=== PATIENT | male | born 1985 | race Caucasian/White ===

== ENCOUNTER 2017-01-27 11:32 | Emergency (ER) | payer MEDICARE, OTHER ==
[~2017-01-27] VITALS: Ht 180.3 cm; Wt 79.4 kg
--- NOTE | 2017-01-27 13:15 | RAD ---
CT head without IV contrast Indication: Laceration to the back of the head status post fall Technique: CT head without IV contrast Comparison: None Findings: Craniotomy changes noted in the calvarium. Large low attenuating area within the inferior left temporal lobe likely encephalomalacia. No acute intracranial bleed. The ventricles and basilar cisterns are within normal limits. Small subgaleal hematoma with scalp laceration is seen within posterior superior aspect of the head (series 2 image 25). Orbits are within normal limits. No calvarial fractures. The paranasal sinuses and mastoid air cells are clear. Impression: 1. No acute intracranial bleed. 2. Large area of low attenuation within inferior left temporal lobe likely represents encephalomalacia. Correlate with surgical history. 3. Small subgaleal hematoma and scalp laceration overlying the posterior superior head. PQRS Compliance Statement: One or more of the following individualized dose reduction techniques were utilized for this examination: 1. Automated exposure control 2. Adjustment of the mA and/or kV according to patient size 3. Use of iterative reconstruction technique
--- NOTE | 2017-01-27 13:53 | PHYS DOC ---
Past Medical History Past Medical History: Seizure Past Surgical History: Other Additional Past Surgical Histo: brain Alcohol Use: None Drug Use: None Adult General Chief Complaint Chief Complaint: MECHANICAL FALL HPI HPI Patient is a 31 year old [f__sex] who presents with [] Review of Systems Review of Systems Constitutional: Denies fever or chills [] Eyes: Denies change in visual acuity, redness, or eye pain [] HENT: Denies nasal congestion or sore throat [] Respiratory: Denies cough or shortness of breath [] Cardiovascular: No additional information not addressed in HPI [] GI: Denies abdominal pain, nausea, vomiting, bloody stools or diarrhea [] : Denies dysuria or hematuria [] Musculoskeletal: Denies back pain or joint pain [] Integument: Denies rash or skin lesions [] Neurologic: Denies headache, focal weakness or sensory changes [] Endocrine: Denies polyuria or polydipsia [] Allergies Allergies Allergies Coded Allergies Type Severity Reaction Last Updated Verified No Known Drug Allergies 03/23/15 No Physical Exam Physical Exam Constitutional: Well developed, well nourished, no acute distress, non-toxic appearance. [] HENT: Normocephalic, atraumatic, bilateral external ears normal, oropharynx moist, no oral exudates, nose normal. [] Eyes: PERRLA, EOMI, conjunctiva normal, no discharge. [] Neck: Normal range of motion, no tenderness, supple, no stridor. [] Cardiovascular:Heart rate regular rhythm, no murmur [] Lungs & Thorax: Bilateral breath sounds clear to auscultation [] Abdomen: Bowel sounds normal, soft, no tenderness, no masses, no pulsatile masses. [] Skin: Warm, dry, no erythema, no rash. [] Back: No tenderness, no CVA tenderness. [] Extremities: No tenderness, no cyanosis, no clubbing, ROM intact, no edema. [] Neurologic: Alert and oriented X 3, normal motor function, normal sensory function, no focal deficits noted. [] Psychologic: Affect normal, judgement normal, mood normal. [] Current Patient Data Vital Signs Vital Signs Date Time Temp Pulse Resp B/P (MAP) Pulse Ox O2 Delivery O2 Flow Rate FiO2 01/27/17 11:35 98.7 78 20 131/76 (94) 98 Room Air 98.7 EKG EKG [] Radiology/Procedures Radiology/Procedures [] Course & Med Decision Making Course & Med Decision Making Pertinent Labs and Imaging studies reviewed. (See chart for details) [] Dragon Disclaimer Dragon Disclaimer This electronic medical record was generated, in whole or in part, using a voice recognition dictation system. Departure Departure Impression: Primary Impression: Closed head injury Additional Impressions: Occipital scalp laceration Scalp hematoma Disposition: HOME, SELF-CARE Referrals: JEAN WHITE MD (PCP) Patient Instructions: Head Injury, Adult Additional Instructions: You've suffered a minor head injury today. Your CAT scan was unremarkable with no fracture or evidence of acute brain injury. Her laceration has been repaired with wound adhesive. Follow-up with your doctor in 2 days for a wound check and return for signs of infection. He did have a hematoma on her scalp. This is soft tissue swelling with bleeding under the skin. Apply an ice pack today as needed and take ibuprofen and Tylenol as needed for discomfort. Problem Qualifiers ELENI WEINSTEIN MD Jan 27, 2017 13:53
[2017-01-27 13:58] VITALS: BP 130/87
== END 2017-01-27 13:58 | disposition home or self-care (01) ==
LOC: ER 11:32
DX: S01.01XA Laceration without foreign body of scalp, initial encounter (principal); X58.XXXA Exposure to other specified factors, initial encounter; Y93.89 Activity, other specified; Y99.8 Other external cause status; Y92.89 Other specified places as the place of occurrence of the external cause
CPT/HCPCS: 70450; 99284-25

== ENCOUNTER 2017-02-15 01:15 | Emergency (ER) | payer MEDICARE, OTHER ==
[~2017-02-15] VITALS: Ht 180.3 cm; Wt 98.0 kg
--- NOTE | 2017-02-15 01:19 | PHYS DOC ---
Past Medical History Past Medical History: Seizure Past Surgical History: Other Additional Past Surgical Histo: brain Alcohol Use: None Drug Use: None Adult General Chief Complaint Chief Complaint: ABDOMINAL PAIN HPI HPI Patient is a 31 year old male who presents with abdominal pain with diarrhea. He states started Thursday was having nausea and he is had about 3-4 loose nonbloody bowel movements daily. He states he's having constant abdominal pain is throbbing in nature and its around his umbilicus area. He states nothing makes it better or worse. He did take some Aleve today prior to coming to the emergency department. He denies any fevers or chills. He denies any recent travel. He does state he eats 3-4 pounds of cheese every day. He also drinks soda pop. Review of Systems Review of Systems Constitutional: Denies fever or chills [] Eyes: Denies change in visual acuity, redness, or eye pain [] HENT: Denies nasal congestion or sore throat [] Respiratory: Denies cough or shortness of breath [] Cardiovascular: No additional information not addressed in HPI [] GI: Denies abdominal pain, nausea, vomiting, bloody stools or diarrhea [] : Denies dysuria or hematuria [] Musculoskeletal: Denies back pain or joint pain [] Integument: Denies rash or skin lesions [] Neurologic: Denies headache, focal weakness or sensory changes [] Endocrine: Denies polyuria or polydipsia [] Current Medications Current Medications Current Medications Medications (Trade) Dose Ordered Sig/Elmer Start Time Stop Time Status Last Admin Dose Admin Info (Do NOT chart on this entry -- for MONITORING) 1 each PRN DAILY PRN 02/15/17 03:00 02/17/17 02:59 Iohexol (Omnipaque 300 Mg/ml) 75 ml 1X ONCE 02/15/17 03:00 02/15/17 03:01 DC 02/15/17 03:28 75 ML Morphine Sulfate 2 mg PRN Q15MIN PRN 02/15/17 01:45 02/16/17 01:44 02/15/17 03:39 2 MG Ondansetron HCl (Zofran) 4 mg 1X ONCE 02/15/17 01:45 02/15/17 02:12 DC 02/15/17 02:09 4 MG Sodium Chloride 1,000 ml @ 1,000 mls/hr Q1H 02/15/17 01:44 02/15/17 02:43 DC 02/15/17 02:09 1,000 MLS/HR Allergies Allergies Allergies Coded Allergies Type Severity Reaction Last Updated Verified No Known Drug Allergies 03/23/15 No Physical Exam Physical Exam Constitutional: Well developed, well nourished, no acute distress, non-toxic appearance. [] HENT: Normocephalic, atraumatic, bilateral external ears normal, oropharynx moist, no oral exudates, nose normal. [] Eyes: PERRLA, EOMI, conjunctiva normal, no discharge. [] Neck: Normal range of motion, no tenderness, supple, no stridor. [] Cardiovascular:Heart rate regular rhythm, no murmur [] Lungs & Thorax: Bilateral breath sounds clear to auscultation [] Abdomen/genital's: Bowel sounds hypoactive, soft, mildly tender to palpation around the umbilicus, no rebound or guarding, no masses, no pulsatile masses. Testicles nontender bilaterally, no masses appreciated Skin: Warm, dry, no erythema, no rash. [] Back: No tenderness, no CVA tenderness. [] Extremities: No tenderness, no cyanosis, no clubbing, ROM intact, no edema. [] Neurologic: Alert and oriented X 3, normal motor function, normal sensory function, no focal deficits noted. [] Psychologic: Affect normal, judgement normal, mood normal. [] Current Patient Data Vital Signs Vital Signs Date Time Temp Pulse Resp B/P (MAP) Pulse Ox O2 Delivery O2 Flow Rate FiO2 02/15/17 01:39 98.3 84 16 118/68 (85) 99 Room Air 98.3 Lab Values Laboratory Tests Test 02/15/17 01:35 02/15/17 02:05 White Blood Count 7.7 x10^3/uL (4.0-11.0) Red Blood Count 4.77 x10^6/uL (4.30-5.70) Hemoglobin 14.1 g/dL (13.0-17.5) Hematocrit 41.0 % (39.0-53.0) Mean Corpuscular Volume 86 fL (79-100) Mean Corpuscular Hemoglobin 30 pg (25-35) Mean Corpuscular Hemoglobin Concent 34 g/dL (31-37) Red Cell Distribution Width 15.0 % (11.5-14.5) H Platelet Count 182 x10^3/uL (140-400) Neutrophils (%) (Auto) 52 % (31-73) Lymphocytes (%) (Auto) 37 % (24-48) Monocytes (%) (Auto) 9 % (0-9) Eosinophils (%) (Auto) 3 % (0-3) Basophils (%) (Auto) 0 % (0-3) Neutrophils # (Auto) 4.0 x10^3uL (1.8-7.7) Lymphocytes # (Auto) 2.9 x10^3/uL (1.0-4.8) Monocytes # (Auto) 0.7 x10^3/uL (0.0-1.1) Eosinophils # (Auto) 0.2 x10^3/uL (0.0-0.7) Basophils # (Auto) 0.0 x10^3/uL (0.0-0.2) Sodium Level 139 mmol/L (136-145) Potassium Level 3.8 mmol/L (3.5-5.1) Chloride Level 101 mmol/L (98-107) Carbon Dioxide Level 31 mmol/L (21-32) Anion Gap 7 (6-14) Blood Urea Nitrogen 20 mg/dL (8-26) Creatinine 0.7 mg/dL (0.7-1.3) Estimated GFR (Cockcroft-Gault) 131.5 Glucose Level 116 mg/dL (70-99) H Calcium Level 9.3 mg/dL (8.5-10.1) Total Bilirubin 0.2 mg/dL (0.2-1.0) Direct Bilirubin < 0.1 mg/dL (0.0-0.2) Aspartate Amino Transferase (AST) 17 U/L (15-37) Alanine Aminotransferase (ALT) 22 U/L (16-63) Alkaline Phosphatase 94 U/L (46-116) Total Protein 7.5 g/dL (6.4-8.2) Albumin 3.6 g/dL (3.4-5.0) Lipase 322 U/L (73-393) Urine Collection Type Unknown Urine Color Yellow Urine Clarity Cloudy Urine pH 6.5 Urine Specific Callahan 1.020 Urine Protein Negative mg/dL (NEG-TRACE) Urine Glucose (UA) Negative mg/dL (NEG) Urine Ketones (Stick) Negative mg/dL (NEG) Urine Blood Negative (NEG) Urine Nitrite Negative (NEG) Urine Bilirubin Negative (NEG) Urine Urobilinogen Dipstick 0.2 mg/dL (0.2 mg/dL) Urine Leukocyte Esterase Negative (NEG) Urine RBC 0 /HPF (0-2) Urine WBC 0 /HPF (0-4) Urine Squamous Epithelial Cells Few /LPF Urine Bacteria 0 /HPF (0-FEW) Urine Hyaline Casts Few /HPF Urine Mucus Slight /LPF Laboratory Tests 02/15/17 01:35 Laboratory Tests 02/15/17 01:35 EKG EKG [] Radiology/Procedures Radiology/Procedures [facility] [address] [place] [address] IMAGING REPORT Signed PATIENT: MARISOL LANGE ACCOUNT: [id number] : 1985 LOCATION: ER AGE: 31 SEX: M EXAM STATUS: REG ER ORD. PHYSICIAN: RAZIA FULLER MD REASON: pain PROCEDURE: CT ABD PELV W/ IV CONTRST ONLY INDICATION: abd pain; Omni 300, 75ml COMPARISON: None. TECHNIQUE: Axial CT images were obtained through the abdomen and pelvis with intravenous contrast. One or more of the following individualized dose reduction techniques were utilized for this examination: 1. Automated exposure control; 2. Adjustment of the mA and/or kV according to patient size; 3. Use of iterative reconstruction technique. FINDINGS: Chest Base: Partially imaged without gross abnormality. Vessels: No abdominal aortic aneurysm. Liver/Biliary: No intrahepatic biliary duct dilation. Pancreas: No peripancreatic edema. Spleen: Normal. Kidneys/Adrenal: 13 mm low-attenuation lesion right kidney. There is some high density within the renal pelvis which could be from excreted contrast. This could obscure small stones. No hydronephrosis. Bladder: No definite adjacent inflammation. GI: No free air. No bowel dilation to suggest obstruction. The suspected appendix does not appear grossly inflamed. Mild prominence of the wall of the stomach at antrum. IMPRESSION: 1. No evidence of bowel obstruction or hydronephrosis. 2. Low-attenuation lesion within the right kidney which is indeterminate on this exam. Could be from causes such as a cyst with debris but a solid more worrisome component is not excluded on this exam. Nonemergent ultrasound may be helpful to further evaluate. 3. Prominence of the wall of the antrum of the stomach. This could be secondary to a region of contraction but if there is pain in the region an area of real wall thickening from causes such as gastritis or ulcer are within the differential. Neoplastic causes would be rare in a patient of this age. Electronically signed by: Barry Brar MD (02/15/2017 4:03 AM) [facility] DICTATED and SIGNED BY: BARRY BRAR MD DATE: 02/15/17 0355 CC: RAZIA FULLER MD; JEAN WHITE MD ~ Impressions: Abdominal pain Possible Renal cyst Course & Med Decision Making Course & Med Decision Making Pertinent Labs and Imaging studies reviewed. (See chart for details) Labs, vitals, CT scan non-concerning for acute process. I believe he has an acute process going on at this time. He is not tender in his epigastric area. We will discharge him home and he can use lactobacillus, Pepcid AC and better eating habits and specifically avoiding pop and milk products including cheese. He is agreeable plan is to follow-up with Dr. White regarding his abnormal CT scan. Return precautions given. Dragon Disclaimer Dragon Disclaimer This electronic medical record was generated, in whole or in part, using a voice recognition dictation system. Departure Departure Impression: Primary Impression: Abdominal pain Disposition: 01 HOME, SELF-CARE Condition: STABLE Referrals: JEAN WHITE MD (PCP) Patient Instructions: Abdominal Migraine Additional Instructions: The CAT scan of your abdomen pelvis didn't show any acute process. It does show a possible cyst and we are kidneys any need to have a repeat CAT scan in the near future. Please follow-up with her primary care physician to have this arranged. You should eat healthier and stopped eating as much cheese and popped. You can start taking Pepcid AC he can purchase [id number]. Please follow instructions the bottle. Return ER if you have worsening pain, uncontrolled nausea vomiting, or notice any blood in your stools. Problem Qualifiers Primary Impression: Abdominal pain Abdominal location: periumbilical Qualified Codes: R10.33 - Periumbilical pain RAZIA FULLER MD Feb 15, 2017 01:19
[2017-02-15] MEDS ORDERED: IV NORMAL SALINE 1000ML BAG 1,000 ML IV SCH (01:44)
[2017-02-15] MEDS ORDERED: ONDANSETRON PF 4 MG/2 ML VIAL. IV ONE (01:45)
[2017-02-15 02:08] LABS: BASO % 0 % (0-3); EOS % 3 % (0-3); HEMOGLOBIN 14.1 g/dL (13.0-17.5); LYMPH # 2.9 x10^3/uL (1.0-4.8); LYMPH % 37 % (24-48); MEAN CORPUSCULAR HEMOGLOBIN 30 pg (25-35); MEAN CORPUSCULAR HGB CONC 34 g/dL (31-37); MEAN CORPUSCULAR VOLUME 86 fL (79-100); MONO % 9 % (0-9); NEUT % 52 % (31-73); PLATELET COUNT 182 x10^3/uL (140-400); RED BLOOD COUNT 4.77 x10^6/uL (4.30-5.70); WHITE BLOOD COUNT 7.7 x10^3/uL (4.0-11.0)
[2017-02-15] MEDS: MORPHINE SULFATE 2 MG/ML DISP.SYRIN. IV/SQ PRN ×2 (02:09→03:39)
[2017-02-15 02:18] LABS: BILIRUBIN,URINE NEGATIVE (NEG); GLUCOSE,URINE NEGATIVE (NEG); NITRITE,URINE NEGATIVE (NEG); PH,URINE 6.5; PROTEIN,URINE NEGATIVE (NEG-TRACE); UROBILINOGEN,URINE 0.2 mg/dL (0.2 mg/dL)
[2017-02-15 02:44] LABS: ANION GAP 7 (6-14); BLOOD UREA NITROGEN 20 mg/dL (8-26); CALCIUM 9.3 mg/dL (8.5-10.1); CARBON DIOXIDE 31 mmol/L (21-32); CHLORIDE 101 mmol/L (98-107); CREATININE 0.7 mg/dL (0.7-1.3); GFR 131.5; GLUCOSE 116 mg/dL (70-99); POTASSIUM 3.8 mmol/L (3.5-5.1); SODIUM 139 mmol/L (136-145)
[2017-02-15 02:50] LABS: ALBUMIN 3.6 g/dL (3.4-5.0); ALK PHOS 94 U/L (46-116); ALT (SGPT) 22 U/L (16-63); AST (SGOT) 17 U/L (15-37); DIRECT BILIRUBIN < 0.1 mg/dL (0.0-0.2); TOTAL BILIRUBIN 0.2 mg/dL (0.2-1.0); TOTAL PROTEIN 7.5 g/dL (6.4-8.2)
[2017-02-15 02:52] LABS: BACTERIA,URINE 0 /HPF (0-FEW); RBC,URINE 0 /HPF (0-2); SQUAMOUS EPITHELIAL CELL,UR FEW /LPF; WBC,URINE 0 /HPF (0-4)
[2017-02-15] MEDS ORDERED: CONTRAST GIVEN MC PRN (03:00)
[2017-02-15] MEDS ORDERED: IOHEXOL 300 MG/ML 75 ML VIAL IV ONE (03:00)
--- NOTE | 2017-02-15 04:07 | RAD ---
INDICATION: abd pain; Omni 300, 75ml COMPARISON: None. TECHNIQUE: Axial CT images were obtained through the abdomen and pelvis with intravenous contrast. One or more of the following individualized dose reduction techniques were utilized for this examination: 1. Automated exposure control; 2. Adjustment of the mA and/or kV according to patient size; 3. Use of iterative reconstruction technique. FINDINGS: Chest Base: Partially imaged without gross abnormality. Vessels: No abdominal aortic aneurysm. Liver/Biliary: No intrahepatic biliary duct dilation. Pancreas: No peripancreatic edema. Spleen: Normal. Kidneys/Adrenal: 13 mm low-attenuation lesion right kidney. There is some high density within the renal pelvis which could be from excreted contrast. This could obscure small stones. No hydronephrosis. Bladder: No definite adjacent inflammation. GI: No free air. No bowel dilation to suggest obstruction. The suspected appendix does not appear grossly inflamed. Mild prominence of the wall of the stomach at antrum. IMPRESSION: 1. No evidence of bowel obstruction or hydronephrosis. 2. Low-attenuation lesion within the right kidney which is indeterminate on this exam. Could be from causes such as a cyst with debris but a solid more worrisome component is not excluded on this exam. Nonemergent ultrasound may be helpful to further evaluate. 3. Prominence of the wall of the antrum of the stomach. This could be secondary to a region of contraction but if there is pain in the region an area of real wall thickening from causes such as gastritis or ulcer are within the differential. Neoplastic causes would be rare in a patient of this age. Electronically signed by: Miles Garibay MD (02/15/2017 4:03 AM) [facility]
[2017-02-15 05:02] VITALS: BP 133/69
== END 2017-02-15 05:45 | disposition home or self-care (01) ==
LOC: ER 01:15
DX: R10.33 Periumbilical pain (principal); R19.7 Diarrhea, unspecified; R11.0 Nausea
CPT/HCPCS: 36415; 74177; 80048; 80076; 81001; 83690; 85025; 96361; 96374; 96375; 96376; 99285; J2270; J2405; J7030; Q9967

== ENCOUNTER → 2017-03-11 | Outpatient (CLI) | payer MEDICARE, OTHER ==
[2017-02-15 05:02] VITALS: BP 133/69
[~2017-03-11] MED LIST: CYCL10TA2 PO; NAPR500T PO
--- NOTE | 2017-03-11 09:35 | RAD ---
Renal ultrasound, 03/11/2017: History: Renal mass on CT scan The right kidney measures 12.4 cm in length while the left kidney measures 12.0 cm. There is a 1.9 cm cyst in the anterolateral aspect of the right kidney. No other renal mass is seen. There is no evidence of hydronephrosis. No abnormal perinephric process is evident. The urinary bladder is poorly delineated due to the lack of bladder distention. IMPRESSION: 1. Small right renal cyst. 2. The kidneys are otherwise unremarkable.
== END | disposition home or self-care (01) ==
LOC: US 08:59
PROVIDERS: ATTEND Family Medicine
DX: N28.1 Cyst of kidney, acquired (principal); N28.89 Other specified disorders of kidney and ureter
CPT/HCPCS: 76770

== ENCOUNTER 2017-03-14 18:41 | Emergency (ER) | payer MEDICARE, OTHER ==
[~2017-03-14] VITALS: Ht 180.3 cm; Wt 98.0 kg
[2017-03-14 19:15] VITALS: BP 127/81
[2017-03-14] MEDS ORDERED: CYCL10TA2 PO (19:28)
[2017-03-14] MEDS ORDERED: NAPR500T PO (19:28)
--- NOTE | 2017-03-14 19:29 | PHYS DOC ---
Past Medical History Past Medical History: Seizure Past Surgical History: Other Additional Past Surgical Histo: brain, LEFT TEMPERAL LOBECTOMY, RIGHT KNEE Alcohol Use: None Drug Use: None Adult General Chief Complaint Chief Complaint: BACK PAIN OR INJURY HPI HPI Patient is a 31 year old male presents to the emergency department with complaints of chronic back discomfort. He states he's had back discomfort for many many years. He feels it is related to his job. 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 He has no loss of function lower extremities, loss of bowel or bladder control. No abdominal pain. Review of Systems Review of Systems Constitutional: Denies fever or chills [] Eyes: Denies change in visual acuity, redness, or eye pain [] HENT: Denies nasal congestion or sore throat [] Respiratory: Denies cough or shortness of breath [] Cardiovascular: No additional information not addressed in HPI [] GI: Denies abdominal pain, nausea, vomiting, bloody stools or diarrhea [] : Denies dysuria or hematuria [] Musculoskeletal: Back pain Integument: Denies rash or skin lesions [] Neurologic: Denies headache, focal weakness or sensory changes [] Endocrine: Denies polyuria or polydipsia [] Allergies Allergies Allergies Coded Allergies Type Severity Reaction Last Updated Verified No Known Drug Allergies 03/23/15 No Physical Exam Physical Exam Constitutional: Well developed, well nourished, no acute distress, non-toxic appearance. [] HENT: Normocephalic, atraumatic, bilateral external ears normal, oropharynx moist, no oral exudates, nose normal. [] Eyes: PERRLA, EOMI, conjunctiva normal, no discharge. [] Neck: Normal range of motion, no tenderness, supple, no stridor. [] Cardiovascular:Heart rate regular rhythm, no murmur [] Lungs & Thorax: Bilateral breath sounds clear to auscultation [] Abdomen: Bowel sounds normal, soft, no tenderness, no masses, no pulsatile masses. [] Skin: Warm, dry, no erythema, no rash. [] Back: Diffuse muscular tenderness without midline tenderness, no paraspinous tenderness. No CVA tenderness. Extremities: No tenderness, no cyanosis, no clubbing, ROM intact, no edema muscle strength is 5 over 5, DTRs 2 over 4, no saddle anesthesia.. [] Neurologic: Alert and oriented X 3, normal motor function, normal sensory function, no focal deficits noted. [] Psychologic: Affect normal, judgement normal, mood normal. [] EKG EKG [] Radiology/Procedures Radiology/Procedures [] Course & Med Decision Making Course & Med Decision Making Pertinent Labs and Imaging studies reviewed. (See chart for details) [] Dragon Disclaimer Dragon Disclaimer This electronic medical record was generated, in whole or in part, using a voice recognition dictation system. Departure Departure Impression: Primary Impression: Chronic back pain Disposition: HOME, SELF-CARE Condition: STABLE Referrals: JEAN WHITE MD (PCP) Patient Instructions: Back Pain, Adult Scripts Naproxen (NAPROSYN) 500 Mg Tablet 500 MG PO BID, #20 TAB Prov: LUPIS MENDOZA APRN 03/14/17 Cyclobenzaprine Hcl (CYCLOBENZAPRINE HCL) 10 Mg Tablet 10 MG PO TID, #30 TAB Prov: LUPIS MENDOZA APRN 03/14/17 Problem Qualifiers Primary Impression: Chronic back pain Back pain location: low back pain Back pain laterality: bilateral Sciatica presence: without sciatica Qualified Codes: M54.5 - Low back pain; G89.29 - Other chronic pain LUPIS MENDOZA APRN Mar 14, 2017 19:29
== END 2017-03-14 19:57 | disposition home or self-care (01) ==
LOC: ER 18:41
DX: G89.29 Other chronic pain (principal); M54.5 Low back pain
CPT/HCPCS: 99283

== ENCOUNTER → 2017-05-08 | Day surgery (SDC) | payer MEDICARE, OTHER ==
[~2017-05-08] MED LIST changes: +DIVA500T2 PO; +HYDROmorphone 2 MG/ML VIAL IV PRN; +IV RINGERS,LACTATED 1000ML 1,000 ML IV SCH; +LAMO200T3 PO; +LEVE100020 PO; +LIDOCAINE 1% PF 2 ML VIAL. ID PRN; +LIDOCAINE 2% PF Vial for OR 5 ML VIAL. ONE; +LORA10TA3 PO; +MORPHINE SULFATE 2 MG/ML DISP.SYRIN. IV PRN; +NAPR-683 PO; -NAPR500T PO; +ONDANSETRON PF 4 MG/2 ML VIAL. IV PRN; +PROCHLORPERAZINE 10 MG/2 ML VIAL. IV PRN; +PROPOFOL 20 ML IV ONE; +ZOLP10TA4 PO; +fentaNYL PF VIAL 100 MCG/2 ML VIAL IV PRN
[2017-05-08 09:01] VITALS: BP 118/72
== END | disposition home or self-care (01) ==
LOC: ENDOS 07:16
PROVIDERS: ATTEND Internal Medicine Gastroenterology
DX: K29.50 Unspecified chronic gastritis without bleeding (principal); F41.9 Anxiety disorder, unspecified; F32.9 Major depressive disorder, single episode, unspecified; Z86.69 Personal history of other diseases of the nervous system and sense organs; Z87.39 Personal history of other diseases of the musculoskeletal system and connective tissue; Z87.442 Personal history of urinary calculi; Z88.8 Allergy status to other drugs, medicaments and biological substances
CPT/HCPCS: 43235; J2704; J2001

== ENCOUNTER → 2017-05-27 | Outpatient (CLI) | payer MEDICARE, OTHER ==
[2017-05-08 09:01] VITALS: BP 118/72
[~2017-05-27] VITALS: Ht 180.3 cm; Wt 106.6 kg
[~2017-05-27] MED LIST changes: -HYDROmorphone 2 MG/ML VIAL IV PRN; -IV RINGERS,LACTATED 1000ML 1,000 ML IV SCH; -LIDOCAINE 1% PF 2 ML VIAL. ID PRN; -LIDOCAINE 2% PF Vial for OR 5 ML VIAL. ONE; -MORPHINE SULFATE 2 MG/ML DISP.SYRIN. IV PRN; -ONDANSETRON PF 4 MG/2 ML VIAL. IV PRN; -PROCHLORPERAZINE 10 MG/2 ML VIAL. IV PRN; -PROPOFOL 20 ML IV ONE; +SINCALIDE 2.1 MCG in IV NORMAL SALINE 50ML 30 ML IV ONE; -fentaNYL PF VIAL 100 MCG/2 ML VIAL IV PRN
--- NOTE | 2017-05-27 08:31 | RAD ---
Right upper quadrant ultrasound 05/27/2017 Indication: Epigastric pain Comparison study: CT of the abdomen and pelvis February 15, 2017 Discussion: Ultrasound evaluation of the right upper quadrant was performed. Static images were submitted to PACS. Pancreas is somewhat poorly visualized. Visualized portions of the pancreatic head are grossly unremarkable. The liver is top normal in longitudinal diameter measuring 17.5 cm. The liver appears to be mildly diffusely hyperechoic suggesting some degree of hepatic steatosis. Portal venous flows in the normal direction. No focal hepatic lesions are identified. The gallbladder is normal in appearance without evidence of wall thickening, stones, or sludge. The common bile duct is normal in diameter at 4 mm. There is a 1.9 cm partially cystic cyst within the mid right kidney. The right kidney is otherwise normal appearance measuring 12.5 cm in length. Impression: 1. Hepatic steatosis 2. 1.9 cm right renal cyst, stable from prior exam.
--- NOTE | 2017-05-27 11:19 | RAD ---
Hepatobiliary scan with gallbladder ejection fraction calculation 09/25/2016 Clinical History: Abdominal pain for 2 months. Technique: After the intravenous administration of 5.5 mCi of Technetium 99m Choletec, imaging of the right upper quadrant of the abdomen was performed using the gamma camera for 60 minutes. 2.1 mcg of CCK was then infused intravenously over 30 minutes. Continued imaging of the right upper quadrant abdomen was performed. A gallbladder ejection fraction was calculated. Findings: Normal uptake and excretion of the radionuclide by the liver is seen. There is no evidence of cystic or common bile duct obstruction. The gallbladder is within normal limits in size and configuration. During the infusion CCK normal emptying of the gallbladder is seen. The gallbladder ejection fraction is 86.4 % which is within normal limits. Impression: Negative study.
== END | disposition home or self-care (01) ==
LOC: US 07:49
PROVIDERS: ATTEND Internal Medicine Gastroenterology
DX: R10.13 Epigastric pain (principal); K76.0 Fatty (change of) liver, not elsewhere classified; N28.1 Cyst of kidney, acquired
CPT/HCPCS: 76705; 78226; 96374; 96375; A9537; J2805

== ENCOUNTER 2017-06-05 06:27 | Emergency (ER) | payer MEDICARE, OTHER | END 2017-06-05 07:23 | disposition home or self-care (01) | LOC: ER 06:27 | DX: J02.9 Acute pharyngitis, unspecified (principal); Z88.8 Allergy status to other drugs, medicaments and biological substances | CPT/HCPCS: 99283 ==

== ENCOUNTER → 2017-06-10 | Outpatient (CLI) | payer MEDICARE, OTHER | END | disposition home or self-care (01) | LOC: NM 06:46 | DX: R10.13 Epigastric pain (principal) | CPT/HCPCS: 78264; A9541 ==

== ENCOUNTER 2017-10-25 15:36 | Emergency (ER) | payer SELFPAY, OTHER, MEDICARE ==
[2017-10-26 10:21] LABS: NEGATIVE OBC STREP NEG; POSITIVE OBC STREP POS
== END 2017-10-25 17:38 | disposition home or self-care (01) ==
LOC: ER 17:38
DX: J40 Bronchitis, not specified as acute or chronic (principal); Z88.8 Allergy status to other drugs, medicaments and biological substances
CPT/HCPCS: 87070; 87880; 99283

== ENCOUNTER 2018-01-01 07:32 | Emergency (ER) | payer OTHER | END 2018-01-01 08:33 | disposition home or self-care (01) | LOC: ER 07:32 | DX: S93.402A Sprain of unspecified ligament of left ankle, initial encounter (principal); F31.9 Bipolar disorder, unspecified; Z88.8 Allergy status to other drugs, medicaments and biological substances; W01.0XXA Fall on same level from slipping, tripping and stumbling without subsequent striking against object, initial encounter; Y93.89 Activity, other specified; Y99.8 Other external cause status; Y92.89 Other specified places as the place of occurrence of the external cause | CPT/HCPCS: 73610; 99284; L4350 ==

== ENCOUNTER → 2018-04-06 | Outpatient (CLI) | payer MEDICARE, OTHER ==
[2018-01-01 07:44] VITALS: BP 129/59
[~2018-04-06] MED LIST changes: +AMOX875T PO; +AZIT250T PO; -SINCALIDE 2.1 MCG in IV NORMAL SALINE 50ML 30 ML IV ONE
[2018-04-06 11:40] LABS: BASO # 0.1 x10^3/uL (0.0-0.2); BASO % 1 % (0-3); EOS # 0.1 x10^3/uL (0.0-0.7); EOS % 1 % (0-3); HEMOGLOBIN 14.5 g/dL (13.0-17.5); LYMPH # 2.6 x10^3/uL (1.0-4.8); LYMPH % 43 % (24-48); MEAN CORPUSCULAR HEMOGLOBIN 30 pg (25-35); MEAN CORPUSCULAR HGB CONC 35 g/dL (31-37); MEAN CORPUSCULAR VOLUME 85 fL (79-100); MONO # 0.5 x10^3/uL (0.0-1.1); MONO % 8 % (0-9); NEUT # 2.9 x10^3uL (1.8-7.7); NEUT % 47 % (31-73); PLATELET COUNT 204 x10^3/uL (140-400); RED BLOOD COUNT 4.82 x10^6/uL (4.30-5.70); RED CELL DISTRIBUTION WIDTH 15.1 % (11.5-14.5); WHITE BLOOD COUNT 6.1 x10^3/uL (4.0-11.0)
[2018-04-06 11:47] LABS: AMPHETAMINE/METHAMPHETAMINE NEG (NEG); BARBITURATES NEG (NEG); BENZODIAZEPINES NEG (NEG); CANNABINOIDS NEG (NEG); COCAINE NEG (NEG); METHADONE NEG (NEG); OPIATES NEG (NEG); PHENCYCLIDINE NEG (NEG)
[2018-04-06 11:53] LABS: ALBUMIN 3.7 g/dL (3.4-5.0); ALBUMIN/GLOBULIN RATIO 0.8 (1.0-1.7); ALK PHOS 88 U/L (46-116); ALT (SGPT) 20 U/L (16-63); ANION GAP 6 (6-14); AST (SGOT) 11 U/L (15-37); BLOOD UREA NITROGEN 15 mg/dL (8-26); BUN/CREATININE RATIO 19 (6-20); CALCIUM 9.4 mg/dL (8.5-10.1); CARBON DIOXIDE 30 mmol/L (21-32); CHLORIDE 103 mmol/L (98-107); CREATININE 0.8 mg/dL (0.7-1.3); GLUCOSE 95 mg/dL (70-99); POTASSIUM 3.6 mmol/L (3.5-5.1); SODIUM 139 mmol/L (136-145); TOTAL BILIRUBIN 0.4 mg/dL (0.2-1.0); TOTAL PROTEIN 8.1 g/dL (6.4-8.2)
[2018-04-06 11:54] LABS: VAL ACID 80 mcg/mL (50-100)
[2018-04-09 16:18] LABS: LAMOTRIGINE LEVEL 9.8 ug/mL (2.0-20.0)
== END | disposition home or self-care (01) ==
LOC: LAB 11:11
PROVIDERS: ATTEND Psychiatry & Neurology Neurology
DX: G40.909 Epilepsy, unspecified, not intractable, without status epilepticus (principal); Z79.899 Other long term (current) drug therapy
CPT/HCPCS: 36415; 80053; 80164; 80175; 80177; 80307; 84443; 85025; G0479

== ENCOUNTER → 2018-04-13 | Outpatient (CLI) | payer MEDICARE ==
[2018-01-01 07:44] VITALS: BP 129/59
[~2018-04-13] MED LIST changes: +GADOBUTROL 10 MMOL/10 ML VIAL IV ONE
--- NOTE | 2018-04-13 12:02 | RAD ---
MRI of the Brain without and with Contrast 04/13/2018 Clinical History: History of seizures. Technique: Unenhanced T1-weighted sagittal and axial and FLAIR, T2-weighted, gradient echo and diffusion-weighted axial images of the brain were obtained. Additionally thin section FLAIR coronal images through the temporal lobes were obtained. After the intravenous administration of 10 cc of Gadavist, enhanced T1-weighted axial, sagittal and coronal images of the brain were obtained. Findings: Comparison is made to the patient's CT scan of the head dated 01/27/2017. Images from the study are degraded by patient motion. The patient is post left frontal temporal parietal craniotomy. A portion of the anterior left temporal lobe has been resected. The ventricles are within normal limits in size and configuration. Patchy and small focal areas of increased signal intensity are seen within the periventricular white matter of both cerebral hemispheres on the FLAIR and T2-weighted images consistent most likely with areas of mild small vessel ischemic disease. No acute parenchymal abnormality is seen. No extra-axial fluid collection is noted. There is no MRI evidence of acute ischemia/infarction. No abnormal area contrast enhancement is seen. Mild mucosal thickening in seen scattered throughout the paranasal sinuses. Normal flow voids are seen within the major vascular structures surrounding the brain parenchyma. IMPRESSION: No acute parenchymal abnormality is seen. Electronically signed by: Dion Tan MD (04/13/2018 11:59 AM) [id number]
--- NOTE | 2018-04-14 18:03 | EEG ---
DATE OF SERVICE: 04/13/2018 EEG NUMBER: [id number] OBJECTIVE: This is a 33-year-old male patient with history of seizure. EEG was requested to evaluate seizure activity. METHODS: Twenty electrodes were applied according to the international 10-20 electrode placement system. EKG monitoring, hyperventilation, intermittent photic stimulation, monopolar and bipolar montages are routinely utilized. The record was obtained on a digital system with video monitoring. FINDINGS: 1. Background: The patient was recorded in the awake, drowsy and sleep states. The overall background amplitude is 10-30 microvolts. A posterior dominant rhythm of 8 Hz is observed. 2. Abnormalities: No specific epileptiform discharge or electrographic seizure is seen. No focal or diffuse slowing. 3. Activation: Hyperventilation was performed with good efforts and normal response. Intermittent photic stimulation was performed with photic driving. No specific epileptiform discharge or electrographic seizure is seen. IMPRESSION: This EEG is a normal study for the awake, drowsy, and sleep states. No focal, lateralizing, specific epileptiform discharge or electrographic seizure is seen. NITHIN ACEVEDO MD DR: MARCEL/hernesto JOB#: [id number] / [id number] ROHIT
== END | disposition home or self-care (01) ==
LOC: RT 06:35
PROVIDERS: ATTEND Psychiatry & Neurology Neurology
DX: G40.909 Epilepsy, unspecified, not intractable, without status epilepticus (principal); J32.9 Chronic sinusitis, unspecified
CPT/HCPCS: 70553; 95816; A9585

== ENCOUNTER → 2018-07-14 | Outpatient (CLI) | payer OTHER, MEDICAID ==
[2018-01-01 07:44] VITALS: BP 129/59
[~2018-07-14] MED LIST changes: -GADOBUTROL 10 MMOL/10 ML VIAL IV ONE
--- NOTE | 2018-07-23 17:25 | EEG ---
DATE OF SERVICE: 07/14/2018 EEG NUMBER: [id number]. OBJECTIVE: This is a 33-year-old male patient with history of seizure. EEG was requested to evaluate seizure activity. This is a long-term video EEG study with total video monitoring and EEG recording time of 24 hours and 21 minutes from 07/14/2018 to 07/15/2018. METHODS: Twenty electrodes were applied according to the international 10-20 electrode placement system. EKG monitoring, hyperventilation, intermittent photic stimulation, monopolar and bipolar montages are routinely utilized. The record was obtained on a digital system with video monitoring. FINDINGS: 1. Background: The patient was recorded in the awake, drowsy and sleep states. The overall background amplitude is 10-30 microvolts. A posterior dominant rhythm of 8-9 Hz is observed. 2. Abnormalities: No specific epileptiform discharge or electrographic seizure is seen. Frequent artifact noted. 3. Activation: Hyperventilation was performed with good efforts and normal response. Intermittent photic stimulation was performed with photic driving. No specific epileptiform discharge or electrographic seizure induced by hyperventilation or intermittent photic stimulation. IMPRESSION: This is a long-term video EEG study with total video monitoring and EEG recording time of 24 hours and 21 minutes from 07/14/2018 to 07/15/2018. This long-term video EEG study is within the normal limits of the study for the awake, drowsy and sleep states. No focal, lateralizing, specific epileptiform discharge or electrographic seizure is seen. NITHIN ACEVEDO MD DR: MARCEL/hernesto JOB#: [id number] / [id number] ROHIT
== END | disposition home or self-care (01) ==
LOC: SLPLAB 06:48
PROVIDERS: ATTEND Psychiatry & Neurology Neurology
DX: G40.909 Epilepsy, unspecified, not intractable, without status epilepticus (principal)
CPT/HCPCS: 95951

== ENCOUNTER 2018-09-07 15:06 | Emergency (ER) | payer OTHER, MEDICAID ==
[~2018-09-07] VITALS: Ht 177.8 cm; Wt 99.8 kg
[2018-09-07 16:01] VITALS: BP 127/88
--- NOTE | 2018-09-07 16:17 | PHYS DOC ---
Past Medical History Past Medical History: Bipolar, Seizure Past Surgical History: Other Additional Past Surgical Histo: LEFT TEMPERAL LOBECTOMY, RIGHT KNEE Alcohol Use: None Drug Use: None Adult General Chief Complaint Chief Complaint: OTHER COMPLAINTS HPI HPI 33-year-old male presents to ER with complaints of bilateral ear pain. Patient states on Thursday he had 5 piercings in each upper ear cartilage and since has been having gradual worsening of ear pain. He denies fever, decreased hearing, flu or cold like sxs, or PÉREZ/dizziness. Pt has 2 piercings in ear lobe denies any issues with those piercings. Review of Systems Review of Systems Constitutional: Denies fever or chills [] Eyes: Denies change in visual acuity, redness, or eye pain [] HENT: Denies nasal congestion or sore throat. Reports bilat. ear pain- denies decreased hearing. Denies ear drainage Respiratory: Denies cough or shortness of breath [] Cardiovascular: No additional information not addressed in HPI [] Musculoskeletal: Denies neck pain or joint pain [] Integument: Denies rash or skin lesions [] Neurologic: Denies headache, focal weakness or sensory changes. Denies dizziness All other systems were reviewed and found to be within normal limits, except as documented in this note. Allergies Allergies Allergies Coded Allergies Type Severity Reaction Last Updated Verified eszopiclone Allergy Intermediate 05/06/17 Yes lithium Allergy Intermediate 05/06/17 Yes Physical Exam Physical Exam Constitutional: Well developed, well nourished, no acute distress, non-toxic appearance. [] HENT: Normocephalic, atraumatic, bilat. ears without bulging/erythema/ perforation/perforation at TM, bilateral external ears normal, oropharynx moist , no oral exudates, nose normal. Pt has bilat. upper cartilage piercings with 5 new sites in each ear- swelling around sites with tenderness on palp. no drainage/erythema Eyes: Pupils equal, conjunctiva normal, no discharge. [] Neck: Normal range of motion, no tenderness, supple, no stridor. [] Cardiovascular:Heart rate regular Lungs & Thorax: Resp. equal Skin: Warm, dry, no erythema, no rash. [] Extremities: ROM intact, no edema. [] Neurologic: Alert and oriented X 3, normal motor function, normal sensory function, no focal deficits noted. [] Psychologic: Affect normal, judgement normal, mood normal. [] Current Patient Data Vital Signs Vital Signs Date Time Temp Pulse Resp B/P (MAP) Pulse Ox O2 Delivery O2 Flow Rate FiO2 09/07/18 16:01 97.7 85 18 127/88 (101) 99 Room Air 97.7 EKG EKG [] Radiology/Procedures Radiology/Procedures [] Course & Med Decision Making Course & Med Decision Making Patient was evaluated in the ER for complaints of bilateral ear pain. Patient had 5 piercings in each upper cartilage on Thursday and since has had onset of ear pain. Patient had concerns for ear infection however on exam patient had NL ear exam with no erythema/bulging or signs of infection- external ear canals were normal limits as well. Patient had swelling around bilateral ear piercings which were tender on palpation. No erythema or purulent drainage. In-depth conversation had with patient regarding possible reaction to the metal or to multiple piercings at once. Patient advised he could talk with the facility where he had the piercings done to see if they had possible plastic inserts where he could take the metal earrings out. Discussion was also had with patient that if symptoms persist he was advised he should take out the piercings to allow healing. Patient was not willing to take the piercings out at this time plans to talk with the place he had piercings and possibly see about other types of rings he could use. Patient was in no visible distress while in the ER denied auditory deficits.Education provided on signs and symptoms to return to ER. Discharge instructions were discussed. Patient to follow-up with primary care physician if symptoms persist or with any concerns. Dragon Disclaimer Dragon Disclaimer This electronic medical record was generated, in whole or in part, using a voice recognition dictation system. Departure Departure Impression: Primary Impression: Otalgia of both ears Referrals: JEAN WHITE MD (PCP) Patient Instructions: Otalgia Additional Instructions: Your ears look clear in the canals for infection. As discussed you should consider taking your 5 piercings out in both of your ears as your ears have not reacted well to the piercings. You can talk to the Cash this at the place where your piercings were done to see if there is another type of hearing due to can insert into the holes and she may be having a reaction to the medical currently in. You can apply cool compress to affected area every 3-4 hours for 20-30 minutes at a time. Monitor the site for signs of infection. LYNN CARABALLO APRN Sep 07, 2018 16:17
== END 2018-09-07 16:26 | disposition home or self-care (01) ==
LOC: ER 15:06
DX: H92.03 Otalgia, bilateral (principal); F31.9 Bipolar disorder, unspecified; Z88.8 Allergy status to other drugs, medicaments and biological substances
CPT/HCPCS: 99281

== ENCOUNTER → 2018-11-05 | Outpatient (CLI) | payer OTHER, MEDICAID ==
[2018-11-05 11:30] LABS: BASO % 1 % (0-3); EOS # 0.1 x10^3/uL (0.0-0.7); EOS % 2 % (0-3); HEMOGLOBIN 14.7 g/dL (13.0-17.5); LYMPH # 2.3 x10^3/uL (1.0-4.8); LYMPH % 36 % (24-48); MEAN CORPUSCULAR HEMOGLOBIN 30 pg (25-35); MEAN CORPUSCULAR HGB CONC 34 g/dL (31-37); MEAN CORPUSCULAR VOLUME 88 fL (79-100); MONO # 0.5 x10^3/uL (0.0-1.1); MONO % 7 % (0-9); NEUT # 3.5 x10^3uL (1.8-7.7); NEUT % 55 % (31-73); PLATELET COUNT 240 x10^3/uL (140-400); RED BLOOD COUNT 4.86 x10^6/uL (4.30-5.70); RED CELL DISTRIBUTION WIDTH 13.9 % (11.5-14.5); WHITE BLOOD COUNT 6.3 x10^3/uL (4.0-11.0)
[2018-11-05 12:24] LABS: ALBUMIN 3.9 g/dL (3.4-5.0); ALK PHOS 107 U/L (46-116); ALT (SGPT) 48 U/L (16-63); ANION GAP 10 (6-14); AST (SGOT) 29 U/L (15-37); BLOOD UREA NITROGEN 10 mg/dL (8-26); BUN/CREATININE RATIO 11 (6-20); CALCIUM 9.7 mg/dL (8.5-10.1); CARBON DIOXIDE 27 mmol/L (21-32); CHLORIDE 104 mmol/L (98-107); CREATININE 0.9 mg/dL (0.7-1.3); GFR 97.2; GLUCOSE 91 mg/dL (70-99); POTASSIUM 4.6 mmol/L (3.5-5.1); SODIUM 141 mmol/L (136-145); TOTAL BILIRUBIN 0.7 mg/dL (0.2-1.0)
[2018-11-05 12:25] LABS: VAL ACID 30 mcg/mL (50-100)
== END | disposition home or self-care (01) ==
LOC: LAB 10:06
PROVIDERS: ATTEND Psychiatry & Neurology Neurology
DX: G40.909 Epilepsy, unspecified, not intractable, without status epilepticus (principal)
CPT/HCPCS: 36415; 80053; 80164; 80177; 85025

== ENCOUNTER 2018-11-09 19:38 | Emergency (ER) | payer OTHER, MEDICAID ==
[~2018-11-09] VITALS: Ht 180.3 cm; Wt 104.3 kg
[2018-11-09 20:27] VITALS: BP 134/92
--- NOTE | 2018-11-09 21:52 | PHYS DOC ---
Past Medical History Past Medical History: Bipolar, Seizure Past Surgical History: Other Additional Past Surgical Histo: LEFT TEMPERAL LOBECTOMY, RIGHT KNEE Alcohol Use: None Drug Use: None Adult General Chief Complaint Chief Complaint: OTHER COMPLAINTS HPI HPI Patient is a 33 year old male who present with request for removal of earring from left upper earlobe. And pieces are not embedded in the cartilage, there is no infection. Patient states the evening is been painful since it was placed over a month ago. Patient states he contacted [facility] who placed earring who would not take out. No other symptoms or complaints. [] Review of Systems Review of Systems ROS [] All other systems were reviewed and found to be within normal limits, except as documented in this note. Allergies Allergies Allergies Coded Allergies Type Severity Reaction Last Updated Verified eszopiclone Allergy Intermediate 05/06/17 Yes lithium Allergy Intermediate 05/06/17 Yes Physical Exam Physical Exam Constitutional: Well developed, well nourished, no acute distress, non-toxic appearance. [] HENT: Normocephalic, atraumatic, bilateral external ears normal, Bar with double ball ear ring left upper outer ear lobe, pulse nondiabetic into the cartilage, there is no EOMI, infection or evidence of foreign body reaction. Eyes: PERRLA, EOMI, conjunctiva normal, no discharge. [] Neurologic: Alert and oriented X 3, normal motor function, normal sensory function, no focal deficits noted. [] Psychologic: Affect normal, judgement normal, mood normal. [] Current Patient Data Vital Signs Vital Signs Date Time Temp Pulse Resp B/P (MAP) Pulse Ox O2 Delivery O2 Flow Rate FiO2 11/09/18 20:27 97.7 70 17 134/92 (106) 97 Room Air 97.7 EKG EKG [] Radiology/Procedures Radiology/Procedures [] Course & Med Decision Making Course & Med Decision Making Pertinent Labs and Imaging studies reviewed. (See chart for details) [Will attempt ear ring removal and treat supportively. ] Dragon Disclaimer Dragon Disclaimer This electronic medical record was generated, in whole or in part, using a voice recognition dictation system. Departure Departure Impression: Primary Impression: Foreign body in left ear lobe Disposition: 01 HOME, SELF-CARE Condition: STABLE Patient Instructions: Foreign Body-Brief Additional Instructions: Please take ibuprofen for pain as needed and apply topical antibiotics twice daily. Follow up with your PCP as needed. GABRIEL BUSTILLO DO Nov 09, 2018 21:52
== END 2018-11-09 22:04 | disposition home or self-care (01) ==
LOC: ER 19:38
DX: T16.2XXA Foreign body in left ear, initial encounter (principal); F31.9 Bipolar disorder, unspecified; Z88.8 Allergy status to other drugs, medicaments and biological substances; X58.XXXA Exposure to other specified factors, initial encounter; Y93.89 Activity, other specified; Y92.89 Other specified places as the place of occurrence of the external cause; Y99.8 Other external cause status
CPT/HCPCS: 99284